=== PATIENT | male | born 1995 | race Caucasian/White ===

== ENCOUNTER 2023-11-16 22:10 | Emergency (ER) | payer OTHER, SELFPAY ==
[2023-11-16 22:12] VITALS: BP 143/93; PULSE 80; RESP 20; TEMP 36.6; O2SAT 99; BMI 23.1
--- NOTE | 2023-11-16 22:31 | XR_ITS ---
PROCEDURE INFORMATION: Exam: XR Chest Exam date and time: 11/16/2023 10:26 PM Age: 28 years old Clinical indication: Wheezing; Additional info: Right sided wheezes TECHNIQUE: Imaging protocol: Radiologic exam of the chest. Views: 2 views. COMPARISON: No relevant prior studies available. FINDINGS: Lungs: Unremarkable. No consolidation. Pleural spaces: Unremarkable. No pleural effusion. No pneumothorax. Heart/Mediastinum: Unremarkable. No cardiomegaly. Bones/joints: Unremarkable. IMPRESSION: No acute findings.
--- OUTSIDE RECORDS SUMMARY | 2023-11-16 22:35 | XMS_ITS | Continuity of Care Document ---
Author Name Unknown Organization [facility] Address [address] [place] [id number] Care Team Providers Care Wheel Aligner Name Role Phone NO, FAMILY (REF) Primary Care Physician Unavaila ble Encounter [facility] [id number] Date(s): 08/06/21 - 08/06/[address] [address]- [place] Encounter Diagnosis Lumbar back pain(Discharge Diagnosis) - 08/06/21 Discharge Disposition: OP Self Care or Home Attending Physician: KATJA RIVERA MD-EMR Admitting Physician: KATJA RIVERA MD-EMR Referring Physician: SELF, REFERRED (REF), -UNK Allergies, Adverse Reactions, Alerts Substance Reaction Severity Status penicillin Active morphine Active Assessment and Plan Extracted from: Title:General Medical Proble m *ED- Author:KATJA RIVERA MD-EMR Date:08/06/21 Basic Information Additional information: Chief Complaint from Nursing Triage Note : Chief Complaint 08/06/2021 7:33 EST Chief Complaint pt woke up with pain in lower back, pt reports 2 knots . History of Present Illness Patient is a healthy 18-year-old male presented to the emergency department for lower back pain. States he woke up and had acute aching/stabbing intermittent pain in his lower back that is worse with movement better with rest. He denies any recent overexertion or trauma to his back. He is not having any fever, incontinence, retention, numbness, weakness, shortness of breath, nausea, vomiting, diarrhea, any other symptoms. Did not try anything at home for the pain. Review of Systems Constitutional symptoms: Negative except as documented in HPI. Skin symptoms: Negative except as documented in HPI. Eye symptoms: Negative except as documented in HPI. ENMT symptoms: Negative except as documented in HPI. Respiratory symptoms: Negative except as documented in HPI. Cardiovascular symptoms: Negative except as documented in HPI. Gastrointestinal symptoms: Negative except as documented in HPI. Genitourinary symptoms: Negative except as documented in HPI. Musculoskeletal symptoms: Negative except as documented in HPI. Neurologic symptoms: Negative except as documented in HPI. Psychiatric symptoms: Negative except as documented in HPI. Endocrine symptoms: Negative except as documented in HPI. Hematologic/Lymphatic symptoms: Negative except as documented in HPI. Health Status Allergies: Allergic Reactions (Selected) Severity Not Documented Morphine- No reactions were documented. Penicillin- No reactions were documented.. Past Medical/ Family/ Social History Surgical history: Appendix ([id number]). Tonsillectomy and adenoidectomy ([id number]).. Family history: No family history items have been selected or recorded.. Social history: Social & Psychosocial Habits Alcohol 09/12/2014 Alcohol Use History, Social Habits Yes Alcohol Use Frequency Socially Employment/School 12/02/2014 Status: Employed Home/Environment 12/02/2014 Lives with: grandparents Nutrition/Health 12/02/2014 Type of diet: Regular Sexual 12/02/2014 Sexually active: Yes Substance Abuse 09/12/2014 Recreational Drug Use History No 12/02/2014 Recreational Drug Use History No Recreational Drug Use Last 12 Months No Tobacco 09/12/2014 Smoking Status Current every day smoker Packs/Tins Daily 1 . Problem list: Active Problems (1) No Chronic Problems . Medical history Reviewed all medical, surgical, social history, and allergies in chart Physical Examination Vital Signs Vital Signs/Vital Measures 08/06/2021 7:33 EST [place] Motor Response Obey commands Allie Verbal Response Oriented [place] Eye Opening Response Spontaneous Allie Coma Score 15 Temperature Source Temporal artery scanning Temperature, Fahrenheit 98.3 Deg F Clinical Temperature, C 36.8 Deg C Peripheral Pulse Rate 108 bpm HI Respiratory Rate 18 Breaths/Min Systolic Blood Pressure 151 mmHg HI Diastolic Blood Pressure 98 mmHg HI Oxygen Saturation 97 % Oxygen Therapy Mode Room air . Measurements 08/06/2021 7:33 EST Height/Length, SINGAPOREAN (ft) 6 ft Height/Length [place] 3 Inch CLINICALHEIGHT 190.5 cm [place] Body Weight 83 kg Weight Source, ED Critical estimated dosing weight Weight Georgian lb 170 lb CLINICALWEIGHT 77.27 kg Body Surface Area (BSA) 2.05 m2 Body Mass Index 21.3 kg/m2 . Oxygen Saturation 08/06/2021 7:33 EST Oxygen Saturation 97 % . General: Alert, mild distress. Skin: Warm, dry, intact. Head: Normocephalic. Neck: Supple, trachea midline. Eye: Normal conjunctiva. Ears, nose, mouth and throat: Oral mucosa moist. Cardiovascular: Regular rate and rhythm, Normal peripheral perfusion, No edema. Respiratory: Respirations are non-labored. Gastrointestinal: Soft, Non distended. Back: Normal alignment, no step-offs, notable lumbar muscle spasms with ttp over muscles, NO midline ttp over back. Musculoskeletal: No swelling, no deformity. Neurological: Alert and oriented to person, place, time, and situation, No focal neurological deficit observed. Psychiatric: Cooperative, appropriate mood & affect. Medical Decision Making Documents reviewed: Emergency department nurses' notes. Orders Include Previous Orders (Selected) Inpatient Orders Ordered Toradol: 15 mg, 1 mL, IntraMuscular, 1-Time Valium: 5 mg, 1 Tab, Oral, 1-Time. Reexamination/ Reevaluation Notes: I have seen/evaluated the patient. The patient agrees with the above plan and all questions answered. . Notes: Feels better and is well appearing. They are agreeable to plan for discharge with return precautions, supportive therapies, and script as below. Ambulating with steady gait. . Impression and Plan Diagnosis Lumbar back pain - Discharge, Medical Plan Disposition: Medically cleared, Discharged Admit/Transfer/Discharge: Discharge (Order): Start: 08/06/2021 9:29 EST, Discharge to: Home. Prescriptions: Prescription [facility]: lidocaine 5% topical film (Prescribe): 1 Patch, TransDermal, Daily, 30 Patch, 0 Refill(s) cyclobenzaprine 5 mg oral tablet (Prescribe): 5 mg, 1 Tab, Oral, TID, for 7 Day(s), PRN: Pain, 21 Tab, 0 Refill(s) ibuprofen 800 mg oral tablet (Prescribe): 800 mg, 1 Tab, Oral, TID, for 7 Day(s), PRN: as needed for pain, 21 Tab, 0 Refill(s). Patient was given the following educational materials: Acute Back Pain, Adult, Muscle Cramps and Spasms. Follow up with: FAMILY (REF) NO Within 2 to 3 days You were seen in the Emergency Department for back pain and your condition was deemed to not require admission to the hospital. You have been provided additional information related to your symptoms and/or diagnosis. You were given a prescription for cyclobenzaprine which is a muscle relaxer pain medication. This may make you sleepy so please refrain from driving/operating heavy machinery while taking this medication. Occasionally health conditions can worsen when you leave the emergency department. If you continue to worsen, do not improve, or develop additional concerning symptoms, please return to the emergency department and allow us to re-evaluate you. Please follow up with your primary care physician for chronic medical problems. Thank you for choosing [facility] for your health care! . Counseled: Patient, Regarding diagnosis, Regarding diagnostic results, Regarding treatment plan, Regarding prescription, Patient indicated understanding of instructions. Notes: Katja Rivera MD . EMR Dragon/Abrasive Coating Machine Operator disclaimer: Much of this encounter note is an electronic district administrative assistant/translation of spoken language to printed text, aka voice recognition. The electronic translation of spoken language may permit erroneous or at times nonsensical words or phrases to be inadvertently transcribed; although I have reviewed the note for such errors, some may still exist that were not able to be corrected due to patient care. Medications cyclobenzaprine 5 mg oral tablet 5 mg 1 Tab, Oral, Tab, TID, PRN Pain, X 7 Day(s), # 21 Tab, 0 Refill(s), Pharmacy: [facility] #[id number], , 08/06/21 7:33:00 EST, CLINICALHEIGHT, 77.27, kg, 08/06/21 7:33:00 EST, CLINICALWEIGHT, 190.5 Start Date: 08/06/21 Stop Date: 08/13/21 Status: Ordered ibuprofen 800 mg oral tablet 800 mg 1 Tab, Oral, Tab, TID, PRN as needed for pain, X 7 Day(s), # 21 Tab, 0 Refill(s), Pharmacy: [facility] #[id number], cm, 08/06/21 7:33:00 EST, CLINICALHEIGHT, 77.27, kg, 08/06/21 7:33:00 EST, CLINICALWEIGHT, 190.5 Start Date: 08/06/21 Stop Date: 08/13/21 Status: Ordered lidocaine 5% topical film 1 Patch, TransDermal, Daily, # 30 Patch, 0 Refill(s), Pharmacy: [facility] #[id number], cm, 08/06/21 7:33:00 EST, CLINICALHEIGHT, 77.27, kg, 08/06/21 7:33:00 EST, CLINICALWEIGHT, 190.5 Start Date: 08/06/21 Status: Ordered Mental Status 08/06/21 Level of Consciousness Alert, Awake Orientation Oriented x 4 Pupils Equal, Round, Reactive to Light Y es Neurological Symptoms None Affect/Behavior Appropriate, Calm, Cooperative Speech Clear Problem List No Known Problems Procedures Procedure Date Related Diagnosis Body Site Status Appendix Completed Tonsillectomy and adenoidectomy Completed Vital Signs Most recent to oldest [Refer ence Range]: 1 2 [place] Motor Response Obey commands (08/06/21 7:59 AM) Obey commands (08/06/21 7:33 AM) Allie Verbal Response Oriented (08/06/21 7:59 AM) Oriented (08/06/21 7:33 AM) [place] Eye Opening Response Spontaneous (08/06/21 7:59 AM) Spontaneous (08/06/21 7:33 AM) Allie Coma Score 15 (08/06/21 7:59 AM) 15 (08/06/21 7:33 AM) Temperature Source Temporal artery scan shahnaz (08/06/21 7:33 AM) Temperature, Fahrenheit [96. 8-99.7 Deg F] 98.3 Deg F (08/06/21 7:33 AM) Clinical Temperature, C 36.8 Deg C (08/06/21 7:33 AM) Peripheral Pulse Rate [60-100 bpm] 108 b pm *HI* (08/06/21 7:33 AM) Respiratory Rate [14-20 Breaths/Min] 18 Breaths/Min (08/06/21 7:33 AM) Blood Pressure [90-140/60-90 mmHg] 151/9 8mmHg *HI* (08/06/21 7:33 AM) Oxygen Saturation [94-100 %] 97 % (08/06/21 7:33 AM) Oxygen Therapy Mode Room air (08/06/21 7:59 AM) Room air (08/06/21 7:33 AM) Height/Length, S[place] (ft) 6 ft (08/06/21 7:33 AM) Height/Length [place] 3 Inch (08/06/21 7:33 AM) CLINICALHEIGHT 190.5 cm (08/06/21 7:33 AM) Weight Source, ED Critical estimated d osing weight (08/06/21 7:33 AM) Weight Georgian lb 170 lb (08/06/21 7:33 AM) CLINICALWEIGHT 77.27 kg (08/06/21 7:33 AM) Body Surface Area (BSA) 2.05 m2 (08/06/21 7:33 AM) Body Mass Index [19-24 kg/m2] 21.3 kg/m2 (08/06/21 7:33 AM) [place] Body Weight 83 kg (08/06/21 7:33 AM) Social History Social History Type Response Smoking Status Current every day ok Sex Hospital Discharge Instructions Patient Education 08/06/2021 09:28:58 Muscle Cramps and Spasms Muscle Cramps and Spasms Muscle cramps and spasms occur when a muscle or muscles tighten and you have no control over this tightening (involuntary muscle contraction). They are a common problem and can develop in any muscle.The most common place is in the calf muscles of the leg. Muscle cramps and muscle spasms are both involuntary muscle contractions, but there are some differences between the two: ??? Muscle cramps are painful. They come and go and may last for a few seconds or up to 15 minutes.Muscle cramps are often more forceful and last longer than muscle spasms. ??? Muscle spasms may or may not be painful. They may also last just a few seconds or much longer. Certain medical conditions, such as diabetes or Parkinson's disease, can make it more likely to develop cramps or spasms. However, cramps or spasms are usually not caused by a serious underlying problem. Common causes include: ??? Doing more physical work or exercise than your body is ready for (overexertion). ??? Overuse from repeating certain movements too many times. ??? Remaining in a certain position for a long period of time. ??? Improper preparation, form, or technique while playing a sport or doing an activity. ??? Dehydration. ??? Injury. ??? Side effects of some medicines. ??? Abnormally low levels of the salts and minerals in your blood (electrolytes), especially potassium and calcium. This could happen if you are taking water pills (diuretics) or if you are . In many cases, the cause of muscle cramps or spasms is not known. Follow these instructions at home: Managing pain and stiffness ??? Try massaging, stretching, and relaxing the affected muscle. Do this for several minutes at a time. ??? If directed, apply heat to tight or tense muscles as often as told by your health care provider. Use the heat source that your health care provider recommends, such as a moist heat pack or a heating pad. ??? Place a towel between your skin and the heat source. ??? Leave the heat on for 20???30 minutes. ??? Remove the heat if your skin turns bright red. This is especially important if you are unable to feel pain, heat, or cold. You may have a greater risk of getting burned. ??? If directed, put ice on the affected area. This may help if you are sore or have pain after a cramp or spasm. ??? Put ice in a plastic bag. ??? Place a towel between your skin and the bag. ??? Leave??the ice on for 20 minutes, 2???3 times a day. ??? Try taking hot showers or baths to help relax tight muscles. Eating and drinking ??? Drink enough fluid to keep your urine pale yellow. Staying well hydrated may help prevent cramps or spasms. ??? Eat a healthy diet that includes plenty of nutrients to help your muscles function. A healthy diet includes fruits and vegetables, lean protein, whole grains, and low-fat or nonfat dairy products. General instructions ??? If you are having frequent cramps, avoid intense exercise for several days. ??? Take nzyr-mzc-wuhfaiz and prescription medicines only as told by your health care provider. ??? Pay attention to any changes in your symptoms. ??? Keep all follow-up visits as told by your health care provider. This is important. Contact a health care provider if: ??? Your cramps or spasms get more severe or happen more often. ??? Your cramps or spasms do not improve over time. Summary ??? Muscle cramps and spasms occur when a muscle or muscles tighten and you have no control over this tightening (involuntary muscle contraction). ??? The most common place for cramps or spasms to occur is in the calf muscles of the leg. ??? Massaging, stretching, and relaxing the affected muscle may relieve the cramp or spasm. ??? Drink enough fluid to keep your urine pale yellow. Staying well hydrated may help prevent cramps or spasms. This information is not intended to replace advice given to you by your health care provider. Make sure you discuss any questions you have with your health care provider. Document Revised: 12/03/2018 Document Reviewed: 12/03/2018 [employer] Patient Education ?? 2020 [employer]. 08/06/2021 09:28:58 Acute Back Pain, Adult Acute Back Pain, Adult Acute back pain is sudden and usually short-lived. It is often caused by an injury to the muscles and tissues in the back. The injury may result from: ??? A muscle or ligament getting overstretched or torn (strained). Ligaments are tissues that connect bones to each other. Lifting something improperly can cause a back strain. ??? Wear and tear (degeneration) of the spinal disks. Spinal disks are circular tissue that provides cushioning between the bones of the spine (vertebrae). ??? Twisting motions, such as while playing sports or doing yard work. ??? A hit to the back. ??? Arthritis. You may have a physical exam, lab tests, and imaging tests to find the cause of your pain. Acute back pain usually goes away with rest and home care. Follow these instructions at home: Managing pain, stiffness, and swelling ??? Take hska-hhn-mgkahjl and prescription medicines only as told by your health care provider. ??? Your health care provider may recommend applying ice during the first 24???48 hours after your pain starts. To do this: ??? Put ice in a plastic bag. ??? Place a towel between your skin and the bag. ??? Leave the ice on for 20 minutes, 2???3 times a day. ??? If directed, apply heat to the affected area as often as told by your health care provider. Usethe heat source that your health care provider recommends, such as a moist heat pack or a heating pad. ??? Place a towel between your skin and the heat source. ??? Leave the heat on for 20???30 minutes. ??? Remove the heat if your skin turns bright red. This is especially important if you are unable to feel pain, heat, or cold. You have a greater risk of getting burned. Activity ??? Do not stay in bed. Staying in bed for more than 1???2 days can delay your recovery. ??? Sit up and stand up straight. Avoid leaning forward when you sit, or hunching over when you stand. ??? If you work at a desk, sit close to it so you do not need to lean over. Keep your chin tucked in. Keep your neck drawn back, and keep your elbows bent at a right angle. Your arms should look likethe letter L. ??? Sit high and close to the steering wheel when you drive. Add lower back (lumbar) support to your car seat, if needed. ??? Take short walks on even surfaces as soon as you are able. Try to increase the length of time you walk each day. ??? Do not sit, drive, or data integration architect one place for more than 30 minutes at a time. Sitting or standing for long periods of time can put stress on your back. ??? Do not drive or use heavy machinery while taking prescription pain medicine. ??? Use proper lifting techniques. When you bend and lift, use positions that put less stress on your back: ??? Bend your knees. ??? Keep the load close to your body. ??? Avoid twisting. ??? Exercise regularly as told by your health care provider. Exercising helps your back heal fasterand helps prevent back injuries by keeping muscles strong and flexible. ??? Work with a physical therapist to make a safe exercise program, as recommended by your health care provider. Do any exercises as told by your physical therapist. Lifestyle ??? Maintain a healthy weight. Extra weight puts stress on your back and makes it difficult to havegood posture. ??? Avoid activities or situations that make you feel anxious or stressed. Stress and anxiety increase muscle tension and can make back pain worse. Learn ways to manage anxiety and stress, such as through exercise. General instructions ??? Sleep on a firm mattress in a comfortable position. Try lying on your side with your knees slightly bent. If you lie on your back, put a pillow under your knees. ??? Follow your treatment plan as told by your health care provider. This may include: ??? Cognitive or behavioral therapy. ??? Acupuncture or massage therapy. ??? Meditation or yoga. Contact a health care provider if: ??? You have pain that is not relieved with rest or medicine. ??? You have increasing pain going down into your legs or buttocks. ??? Your pain does not improve after 2 weeks. ??? You have pain at night. ??? You lose weight without trying. ??? You have a fever or chills. Get help right away if: ??? You develop new bowel or bladder control problems. ??? You have unusual weakness or numbness in your arms or legs. ??? You develop nausea or vomiting. ??? You develop abdominal pain. ??? You feel faint. Summary ??? Acute back pain is sudden and usually short-lived. ??? Use proper lifting techniques. When you bend and lift, use positions that put less stress on your back. ??? Take jarz-uwa-nsaicjh and prescription medicines and apply heat or ice as directed by your health care provider. This information is not intended to replace advice given to you by your health care provider. Make sure you discuss any questions you have with your health care provider. Document Revised: 10/29/2019 Document Reviewed: 02/21/2018 [employer] Patient Education ?? 2020 [employer]. Follow Up Care 08/06/2021 07:13:38 With:FAMILY (REF) NO Address:Unknown When:2 to 3 days Comments:You were seen in the Emergency Department for back pain and your condition was deemed to not require admission to the hospital.You have been provided additional information related to your symptoms and/or diagnosis. You were given a prescription for cyclobenzaprine which is a muscle relaxer pain med ication. This may make you sleepy so please refrain from driving/operating heavy machinery while taking this medication. Occasionally health conditions can worsen when you leave the emergency department. If you continue to worsen, do not improve, or develop additional concerning symptoms, please return to the emergency department and allow us to re-evaluate you. Please follow up with your primarycare physician for chronic medical problems. Thank you for choosing [facility] for your health care!
[2023-11-16] MEDS: DEXAMETHASONE 4MG TABLET 10 MG PO (22:44)
--- NOTE | 2023-11-16 22:59 | [facility].EDGENADL ---
Discharge Plan Disposition Patient Disposition: Home, Self-Care Prescriptions Prescriptions: New prednisone 20 mg tablet 40 mg PO DAILY 5 Days Qty: 10 0RF Referrals Follow up/Referrals: Provider,Referral, MD [Primary Care Provider] - See instructions Activity Restrictions/Add. Instructions Additional Instructions/Restrictions: Call your family doctor to establish care for this visit to the emergency department and schedule follow-up within 48 hours to ensure improvement. If you have any worsening of your condition or any other concerning signs or symptoms, return to the emergency department or your primary care doctor for further evaluation. Clinical Impressions Clinical Impression: Bronchitis Discharge ED Provider: Godwin Jean-Baptiste General Adult HPI General Chief complaint: Upper Respiratory Infection Stated complaint: cough congestion upper back pain Time Seen by Provider: 11/16/23 22:17 Mode of Arrival: Ambulatory Source of Information: Patient Limitations: No Limitations Description of Symptoms (Recalled from ER Triage Doc. by RN): Patient states he has had a cough and congession for 2 weeks. Denies fever, N/V/D. Patient states when he takes a deep breath in hurts. History of Present Illness HPI narrative: Please note that above description of symptoms, in this electronic medical record under categorization of recalled from ER triage doctor by RN are reflective of an initial nursing assessment, however, is not reflective of my full history and physical exam that was personally taken and clarified. Consequentially, this preceding description of symptoms, which may include the patient's categorized chief complaint in the EMR, do not reflect my personal clinical impression, and the ultimate description of history of present illness and patient stated complaints should be deferred to this section of the note. Unless stated otherwise or congruent with this section of the note, additional signs, symptoms, or incongruence should be interpreted as inaccurate with my clinical impression. Related Data Previous Rx's Medication Instructions Recorded prednisone 20 mg tablet 40 mg (2 x 20 mg) PO DAILY 5 days 11/16/23 #10 tabs Allergies Allergy/AdvReac Type Severity Reaction Status Date / Time No Known Allergies Allergy Verified 11/16/23 22:43 [facility] Disclaimer: The information contained in this section may have been updated after the patient was seen, as this information can be updated by other users. Social History Smoking Status: Current every day smoker alcohol intake: current current occupational status: employed Travel in the last 8 weeks: None ROS Obtained: Yes All systems reviewed & no additional complaints except as documented Physical Exam General General appearance: alert and in no apparent distress Head Head exam: atraumatic and normocephalic Eye Eye exam: Present normal appearance, PERRL and EOMI ENT ENT exam: Present mucous membranes moist Neck Neck exam: Present normal inspection, full ROM and trachea midline Respiratory Respiratory exam: Absent respiratory distress, wheezes, stridor, accessory muscle use or prolonged expiratory phase Cardiovascular Cardiovascular exam: Present normal rhythm Abdominal Exam Abdominal exam: Present soft; Absent distention, tenderness, guarding, rebound or rigidity Extremities Exam Extremities exam: Absent edema Neurological Exam Neurological exam: Present alert, oriented X3, CN II-XII intact and normal gait; Absent motor sensory deficit Skin Skin exam: Present warm and dry; Absent diaphoresis or erythema Medical Decision Making Medical Records Medical records reviewed: Yes I reviewed the patient's medical records. Tian Inquiry Pt receiving controlled substance: No Tian was queried for this patient: No Vital Signs: 11/16/23 22:12 Temperature 97.9 F Temperature Source Oral Pulse Rate [Right Radial] 80 Respiratory Rate 20 Blood Pressure [Right Arm] 143/93 H Blood Pressure Mean [Right Arm] 109 Blood Pressure Source [Right Arm] Automatic Cuff Blood Pressure Position [Right Arm] Sitting 02 Sat by Pulse Oximetry 99 Oxygen Delivery Method Room Air Orders (Tests/Meds): ED MEDICATIONS Discontinued Medications Generic Name Dose Route Start Last Admin Trade Name Jerome PRN Reason Stop Dose Admin Dexamethasone 10 mg 11/16/23 22:31 11/16/23 22:44 Dexamethasone 4mg Tablet PO 11/16/23 22:32 10 mg ONCE ONE Administration ORDERS Category Date Time Status CXR 2 view (NOT portable) [XR chest 2V] Stat Exams 11/16/23 22:31 Completed Medical Decision Narrative: 28-year-old male currently smoking no other medical history presenting with 2 weeks of cough. Cough was initially nonproductive, became productive about a week ago, is still productive of yellow sputum. No fevers or chills, nausea or vomiting, but he does have nasopharyngeal congestion. Postnasal drip and nighttime cough. Has not taken anything for the symptoms. On arrival, patient hemodynamically stable, afebrile, normotensive and appropriate. Lungs are clear to auscultation bilaterally anterior and posteriorly. Patient appears very well. Differential includes viral syndrome, pneumonia, among others. Chest x-ray obtained 2 view, this was negative on independent interpretation. Patient given Decadron. Because patient at baseline without signs or symptoms of clinical decompensation, deemed appropriate for discharge. Results were relayed to patient who voiced understanding and were agreeable to outpatient management and follow up. I discussed my clinical impression with patient and answered all questions. At this time, the evidence for any other entities in the differential is insufficient to warrant any further testing or ED observation. This was explained as well. Advisory was given that persistent or worsening symptoms require further evaluation. I confirmed the understanding of this discussion. Critical Care Critical Care Time Critical Care Time: No
[2023-11-16 23:08] VITALS: BP 140/80; PULSE 74; RESP 20; TEMP 36.8; O2SAT 97
== END 2023-11-16 23:16 | disposition home or self-care (01) ==
PROVIDERS: Emergency Provider Emergency Medicine
DX: J20.9 Acute bronchitis, unspecified (principal); R07.1 Chest pain on breathing; R05.9 Cough, unspecified; F17.210 Nicotine dependence, cigarettes, uncomplicated
CPT/HCPCS: 71046; 99283